=== PATIENT | male | born 1960 | race Caucasian/White ===

== ENCOUNTER 2019-05-22 14:59 | Emergency (ER) | payer OTHER ==
--- NOTE | 2019-05-22 15:41 | EDM.PDOC ---
ED HPI GENERAL MEDICAL PROBLEM - General Chief Complaint: Upper Extremity Injury/Pain Stated Complaint: POSSIBLE BROKEN RT WRIST Time Seen by Provider: 05/22/19 15:26 Source of Information: Reports: Patient History Limitations: Reports: No Limitations - History of Present Illness INITIAL COMMENTS - FREE TEXT/NARRATIVE: 58 yo pt fell from chair landing on right side injuring wrist and hip. Pt did not hit his head and had no LOC. pain and deformity to right wrist. mild pain right hip with pain on weight bearing. Right Wrist Pain Score (Numeric/FACES): 5 - Related Data Allergies Allergy/AdvReac Type Severity Reaction Status Date / Time No Known Allergies Allergy Verified 05/22/19 15:20 Home Meds: Home Meds Insulin Degludec [Tresiba Flextouch U-100] 25 units SUBCUT BEDTIME 05/22/19 [ History] Insulin Lispro [HumaLOG] 1 unit SUBCUT ASDIRECTED 05/22/19 [History] Levothyroxine 1 tab PO DAILY 05/22/19 [History] Lisinopril 1 tab PO DAILY 05/22/19 [History] atorvaSTATin [Lipitor] 1 tab PO DAILY 05/22/19 [History] Past Medical History Cardiovascular History: Reports: High Cholesterol, Hypertension Gastrointestinal History: Reports: Other (See Below) Other Gastrointestinal History: gastroparesis Endocrine/Metabolic History: Reports: Diabetes, Type I, Hypothyroidism Social & Family History - Tobacco Use Smoking Status *Q: Heavy Tobacco Smoker Years of Tobacco use: 25 Packs/Tins Daily: 1 - Recreational Drug Use Recreational Drug Use: No Review of Systems - Review of Systems Review Of Systems: See Below Respiratory: Denies: Shortness of Breath, Wheezing Cardiovascular: Denies: Chest Pain Musculoskeletal: Reports: Joint Pain, Joint Swelling Skin: Denies: Rash ED EXAM, GENERAL - Physical Exam Exam: See Below Exam Limited By: No Limitations General Appearance: Alert, WD/WN, No Apparent Distress Head: Atraumatic, Normocephalic Neck: Normal Inspection, Supple, Non-Tender, Full Range of Motion Respiratory/Chest: No Respiratory Distress, Lungs Clear, Normal Breath Sounds. No: Crackles, Rhonchi, Wheezing Cardiovascular: Regular Rate, Rhythm Extremities: Arm Pain (right wrist deformity, cms distal to injury intact) Neurological: Alert, Oriented Course - Vital Signs Last Recorded V/S: Last Vital Signs Temp 36.3 C 05/22/19 15:28 Pulse 62 05/22/19 15:28 Resp 16 05/22/19 15:28 BP 157/49 H 05/22/19 15:28 Pulse Ox 98 05/22/19 15:28 - Orders/Labs/Meds Orders: Active Orders 24 hr Category Date Time Status Wrist Comp Min 3V Rt [CR] Stat Exams 05/22/19 15:35 Taken - Radiology Interpretation Free Text/Narrative:: distal radius fx - Re-Assessments/Exams Free Text/Narrative Re-Assessment/Exam: 05/22/19 17:01 Edita MA [facility] accepted transfer for open reduction. pt instructed to remain NPO and will be transported by private vehicle Departure - Departure Time of Disposition: 17:02 Disposition: DC/Tfer to Acute Hospital 02 Condition: Good Clinical Impression: Fracture of radius Qualifiers: Encounter type: initial encounter Radius location: distal Fracture type: closed Fracture morphology: unspecified fracture morphology Laterality: right Qualified Code(s): S52.501A - Unspecified fracture of the lower end of right radius, initial encounter for closed fracture - Discharge Information *PRESCRIPTION DRUG MONITORING PROGRAM REVIEWED*: Not Applicable *COPY OF PRESCRIPTION DRUG MONITORING REPORT IN PATIENT NIR: Not Applicable Referrals: PCP,None [Primary Care Provider] - Forms: ED Department Discharge - My Orders Last 24 Hours: My Active Orders 05/22/19 15:35 Wrist Comp Min 3V Rt [CR] Stat - Assessment/Plan Last 24 Hours: My Active Orders 05/22/19 15:35 Wrist Comp Min 3V Rt [CR] Stat
--- NOTE | 2019-05-22 17:19 | CRLCR ---
INDICATION: Trauma TECHNIQUE: Right wrist three views COMPARISON: None FINDINGS AND IMPRESSION: There is a comminuted transverse fracture of the distal right radius with approximately 1.7 cm dorsal displacement and 1 cm radial displacement. There is mild apex volar angulation of the distal fracture fragment. There is associated soft tissue swelling. Vascular atherosclerotic calcifications. Dictated by Fabi Mckinnon MD @ 05/22/2019 5:18:29 PM Dictated by: Fabi Mckinnon MD @ 05/22/2019 17:18:36 (Electronically Signed)
== END 2019-05-22 17:17 ==
LOC: JP.ED 14:59
DX: S52.501A Unspecified fracture of the lower end of right radius, initial encounter for closed fracture (principal); I10 Essential (primary) hypertension; E03.9 Hypothyroidism, unspecified; E10.9 Type 1 diabetes mellitus without complications; F17.210 Nicotine dependence, cigarettes, uncomplicated; Z79.899 Other long term (current) drug therapy; W07.XXXA Fall from chair, initial encounter
CPT/HCPCS: 73110-RT; 99284-25